=== PATIENT | female | born 1995 | race Caucasian/White ===

== ENCOUNTER 2019-11-12 05:53 | Inpatient (IN) | payer OTHER ==
[2019-11-12] MEDS ORDERED: NS / Oxytocin 40 units/1000ml 1,000 ML IV PRN (06:45)
[2019-11-12] MEDS ORDERED: Ondansetron PF 4 MG/2 ML Vial IVP PRN ×2 (06:45→14:08)
[2019-11-12] MEDS ORDERED: hydrALAZINE 20 MG/ML VIAL SLOW IVP PRN ×2 (06:45→22:03)
[2019-11-12] MEDS ORDERED: Ibuprofen 800 MG TAB PO PRN (06:45)
[2019-11-12] MEDS ORDERED: Lidocaine 1% (PF) 30 ML VIAL SC PRN (06:45)
[2019-11-12] MEDS ORDERED: Promethazine HCl 25 MG/ML VIAL IM PRN ×2 (06:45→14:08)
[2019-11-12] MEDS ORDERED: Butorphanol Tartrate 1 MG/ML VIAL SLOW IVP PRN (06:45)
[2019-11-12] MEDS ORDERED: HYDROcodone/Acetaminophen 5/325 mg Tablet PO PRN ×4 (06:45→22:03)
--- NOTE | 2019-11-12 06:46 | PDOC.EVN ---
Event Note - Event Note Event Note: Asked to place courtesy direct admit orders.RN states GBS negative.
[2019-11-12 07:34] VITALS: BMI 29.9
[2019-11-12] MEDS: Lactated Ringer's 1,000 ML IV SCH ×2 (08:07→13:59)
[2019-11-12 08:29] LABS: Hemoglobin 14.2 g/dL (12.0-16.0); Mean Corpuscular HGB CONC 35.4 g/dL (32.0-36.0); Mean Platelet Volume 10.2 fL (7.4-10.4); Platelet Count 156 thou/uL (130-400); RBC Distribution Width 12.1 % (11.5-14.5); Red Blood Cell (RBC) Count 4.32 mill/uL (4.20-5.40); White Blood Cell (WBC) Count 17.6 thou/uL (4.8-10.8)
[2019-11-12 09:00] LABS: Syphilis Antibody Nonreactive (Nonreactive); Syphilis Antibody Index 0.06 S/CO (<1.00 Non-Reactive)
[2019-11-12 09:01] LABS: HBSAg Index 0.26 S/CO (0-0.99); HIV (1/2) Antibody/Antigen Non-Reactive (NonReactive); HIV 1/2 INDEX 0.13 S/CO (<1.00); Hep B Surf Ag Non-Reactive S/CO (NonReactive)
[2019-11-12] MEDS ORDERED: Bupivacaine 0.25% HCL 30 ML VIAL ONE (09:33)
[2019-11-12] MEDS ORDERED: EPHEDRINE 25 MG/5 ML SYRINGE ONE (09:33)
--- NOTE | 2019-11-12 11:41 | PDOC.LDPN ---
Labor & Delivery Progress Note - Subjective Subjective: painful contractions (breathing) - Objective Vital signs reviewed and normal: yes General: breathing through contractions Uterine fundus: non tender Dilation: 5 Effacement: 100% Station: 0 FHT: category 1 [place] contractions every: q 3-4m. FHT baseline 125. mod variability, +Accels, no decels. Cat 1 AROM: clear fluid - Assessment (1) Occiput posterior presentation of fetus Code(s): O64.0XX0 - OBSTRUCTED LABOR DUE TO INCMPL ROTATION OF HEAD, UNSP Current Visit: Yes Status: Acute (2) Primigravida Code(s): Z34.00 - ENCNTR FOR SUPRVSN OF NORMAL FIRST , UNSP TRIMESTER Current Visit: Yes Status: Acute Plan: continue plan of care (Spinning babies to help fetus rotate to BERNARDO. Currently LOP. ), labor augmentation ( ) -: Reassess in two hours or PRN as indicated by maternal status.
[2019-11-12] MEDS ORDERED: Fentanyl 4 mcg/Bup 0.1% Cadd 100 ML ONE (13:24)
[2019-11-12] MEDS ORDERED: Lactated Ringer's 500 ML IV PRN (14:08)
[2019-11-12] MEDS ORDERED: Naloxone HCl 0.4 mg/ml Vial IVP PRN ×2 (14:08)
[2019-11-12] MEDS ORDERED: diphenhydrAMINE 50 MG/ML VIAL IVP PRN (14:08)
[2019-11-12] MEDS ORDERED: EPHEDRINE 25 MG/5 ML SYRINGE SLOW IVP PRN (14:08)
[2019-11-12] MEDS ORDERED: Acetaminophen 325 MG TAB PO PRN (14:08)
[2019-11-12] MEDS ORDERED: Fentanyl 4 mcg/Bupivacaine 0.1% Cassette 100 ML EPIDURAL SCH (14:15)
[2019-11-12] MEDS ORDERED: Communication Order-Pharmacy FS SCH ×2 (14:15→14:30)
--- NOTE | 2019-11-12 19:43 | PDOC.OPDEL ---
OB Operative/Delivery Note Delivery Dr/Surgeon: Fawad King Pre-Delivery Diagnosis: active labor Procedure/Post Delivery Dx: spontaneous vaginal delivery Weeks gestation: 40 Anesthesia: epidural - Findings A Sex: male Weight: 7 lb - 1 min: 8 - 5 min: 9 - Additional Findings/Plan Placenta delivered: spontaneous Repaired Obstetrical Laceration: 1st degree Estimated blood loss: 200QBL see nurses note for QBL Post delivery plan: routine recovery
[2019-11-12] MEDS: Ibuprofen 800 MG TAB PO SCH (22:00)
[2019-11-12] MEDS ORDERED: Bisacodyl 10 MG SUPP PR PRN (22:03)
[2019-11-12] MEDS ORDERED: Milk Of Magnesia 30 ML UDCUP PO PRN (22:03)
[2019-11-12] MEDS ORDERED: Methylergonovine 0.2 MG/ML VIAL IM PRN (22:03)
[2019-11-12] MEDS ORDERED: Benzocaine-Menthol 82.5 ML CAN TOP PRN (22:03)
[2019-11-12] MEDS ORDERED: NS / Oxytocin 40 units/1000ml 1,000 ML IV SCH (22:03)
[2019-11-12] MEDS ORDERED: Ibuprofen 800 MG TAB PO SCH (22:45)
[2019-11-12] MEDS ORDERED: Docusate Calcium (SURFAK) 240 MG CAP PO SCH (22:45)
[2019-11-13] MEDS: Ibuprofen 800 MG TAB PO SCH ×3 (05:01→22:39)
[2019-11-13] MEDS: Ferrous Sulfate 325 MG TAB PO SCH ×2 (08:36→13:56)
[2019-11-13] MEDS ORDERED: Adacel (T-DAP) 0.5 ML SYRINGE IM ONE (09:00)
[2019-11-13] MEDS: Prenatal Vitamin 1 TAB PO SCH (09:05)
[2019-11-13] MEDS: Docusate Calcium (SURFAK) 240 MG CAP PO SCH ×2 (09:05→22:39)
--- NOTE | 2019-11-13 12:51 | PDOC.PP ---
Post Progress Note Post Day #: 1 Subjective: Patient is doing well. bored. Breast feeding is not going well. will not sustain latching/sucking PO intake tolerated: yes Flatus: yes Ambulation: yes Vital Signs (12 hours) Temp Pulse Resp BP Pulse Ox 11/13/19 12:00 98.8 F 77 18 116/62 98 11/13/19 08:10 98.2 F 77 17 108/59 L 97 11/13/19 04:00 98.4 F 84 18 121/57 L Weight Weight 180 lb - Physical Examination General: NAD Respiratory: non-labored breathing Abdominal: lochia (minimal), no distention Skin: no rash Neurological: no gross focal deficits Psychiatric: A&Ox3, normal affect Result Diagrams: 11/12/19 08:09 Additional Labs: Post Labs Blood Type O POSITIVE 11/12/19 08:09 Hep Bs Antigen Non-Reactive S/CO (NonReactive) 11/12/19 08:09 (1) Occiput posterior presentation of fetus Code(s): O64.0XX0 - OBSTRUCTED LABOR DUE TO INCMPL ROTATION OF HEAD, UNSP Status: Acute (2) Primigravida Code(s): Z34.00 - ENCNTR FOR SUPRVSN OF NORMAL FIRST , UNSP TRIMESTER Status: Acute (3) (spontaneous vaginal delivery) Code(s): O80 - ENCOUNTER FOR FULL-TERM UNCOMPLICATED DELIVERY Status: Acute - Assessment/Plan A: G1 now p1 sp . no complications. P: consultation ordered routine care discharge home tomorrow if indicated
[2019-11-14] MEDS: Ibuprofen 800 MG TAB PO SCH ×2 (06:07→08:28)
[2019-11-14] MEDS: Ferrous Sulfate 325 MG TAB PO SCH (08:09)
--- NOTE | 2019-11-14 08:25 | PDOC.LDHP ---
Labor and Delivery H&P Chief complaint: contractions Dating criteria: last menstrual period Grav: 1 Para: 0 Current complications: none Current medications: pre- vitamins Allergies/Adverse Reactions: Allergies Allergy/AdvReac Type Severity Reaction Status Date / Time No Known Allergies Allergy Verified 09/21/13 11:30 Social history: none - Physical Exam Vital signs reviewed and normal: yes General: breathing through contractions Heart: RRR Lungs: nonlabored breathing Abdomen: gravid Extremeties: no edema FHT: category 1 - Vaginal Exam cm dilated: 4 Effacement: 90% Station: 0 - OB Labs Blood type: O RH: positive Antibody Screen: negative HIV: negative RPR: negative HEPSAg: negative 1 hour GCT: negative GBS: negative Urine drug screen: negative Rubella: immune - Assessment L&D Assessment: term patient in labor - Plan Plan: admit to L&D, informed consent obtained, anesthesia consult for pain management
[2019-11-14] MEDS: Prenatal Vitamin 1 TAB PO SCH (08:28)
[2019-11-14] MEDS: Docusate Calcium (SURFAK) 240 MG CAP PO SCH (08:28)
[2019-11-14 10:17] VITALS: BP 112/74; TEMP 98
== END 2019-11-14 14:28 | disposition home or self-care (01) | DRG 807 ==
LOC: L&D/OP 05:53 → L&D 08:27 → 3SW 21:05
PROVIDERS: ADMIT Obstetrics & Gynecology; ATTEND Obstetrics & Gynecology
PROC: 10E0XZZ Delivery of Products of Conception, External Approach (ICD-10-PCS; principal; 2019-11-12)
PROC: 0HQ9XZZ Repair Perineum Skin, External Approach (ICD-10-PCS; 2019-11-12)
DX: O48.0 Post-term pregnancy (principal); Z37.0 Single live birth; Z3A.40 40 weeks gestation of pregnancy; O70.0 First degree perineal laceration during delivery; O64.0XX0 Obstructed labor due to incomplete rotation of fetal head, not applicable or unspecified
CPT/HCPCS: 51702; 85027; 86780; 86850; 86900; 86901; 87340; 87389; 99285; J0595; J2405; S0020